=== PATIENT | female | born 1995 | race African-American/Black ===

== ENCOUNTER 2025-07-01 11:15 | Emergency (ER) | payer OTHER, SELFPAY ==
[2025-07-01 11:19] VITALS: BP 134/82
--- NOTE | 2025-07-01 13:13 | ED.GENMED ---
History of Present Illness
General
Chief Complaint: Skin Surface Trauma
Source: patient
Exam Limitations: none
Time Seen by Provider: 07/01/25 12:26
Nursing documentation reviewed up to this point in time: agreed with
History of Present Illness
History of Present Illness:
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 Then of long pants on believes she had a blunt object that
caused the skin injury. Has been able to walk does have some pain denies numbness weakness or additional symptoms.
Review of Systems
Review of Systems
Allergies reviewed?: Yes
All Other Systems: ROS reviewed and negative except as documented in HPI and ROS
Phy Exam
Physical Exam
Physical Exam:
GENERAL: Alert , in no apparent distress
EYE: pupils equal and reactive
NECK: Supple, no significant adenopathy.
ENT: o/p clr, mmm.
CARDIAC: Regular rate and rhythm .
LUNGS: Clear breath sounds bilaterally, no acute respiratory distress, no wheezes/rales/rhonchi
ABDOMEN: Soft, without focal tenderness, no r/g, no cvat
NEUROLOGICAL: Alert and oriented, no focal neuro deficits
SKIN: 1.5 cm laceration to the right anterior robb vertical in orientation subcutaneous in depth warm and dry, skin intact.
MUSCULOSKELETAL: No edema, well perfused.
PSYCH: Normal and appropriate interaction.
Course
Vital Signs
Initial and Last Documented VS:
Initial Vital Signs
Temp Pulse Resp BP Pulse Ox
98.0 F 93 16 134/82 98
07/01/25 11:19 07/01/25 11:19 07/01/25 11:19 07/01/25 11:19 07/01/25 11:19
Last Documented Vital Signs
Temp Pulse Resp BP Pulse Ox
98.0 F 93 16 134/82 98
07/01/25 11:19 07/01/25 11:19 07/01/25 11:19 07/01/25 11:19 07/01/25 13:13
Procedures
Laceration Closure
Right Anterior Distal Leg:
Status of Wound: clean
Size of Wound in cm: 1.5
Description of Wound Edges: sharp
Preparation: cleaned with saline
Anesthesia: 1% Lidocaine with epi
Revision/Debridement: routine- no revision
Wound exploration: explored to base- no FB and no tendon involvement
Type of Closure: single layer closure and interrupted sutures
Skin Closure Material: 4-0 nylon
Number of sutures: 3
MDM/Problems Addressed
MDM/Problems Addressed:
29-year-old female presenting to the emergency department today with concerns of a small laceration of the right anterior robb. This was cleaned thoroughly and closed with 3 stitches. Stable for outpatient management return precautions given.
Advise removal in 12 to 14 days. Low risk for infection up-to-date with tetanus shot.
*Pulse Oximetry
SaO2: 98
Oxygen Mode of Delivery: Room air
Patient hypoxic: no (98)
*Critical Care Note
Total Time (30-74mins, 75-104mins- exclusive of procedures): Not Applicable
ED Attending Note
-
Portions of this chart may have been created with voice recognition software.� Occasional wrong word or��sound alike� substitutions may have occurred due to the inherent limitations of voice recognition software.
Discharge Plan
Departure
Patient Disposition: Home (Routine Discharge)
Date of Disposition: 07/01/25
Time of Disposition: 13:13
Patient with high blood pressure during this ER visit?: No
Condition: Good
Covid-19: Not Applicable
Discharge Problem:
Laceration of skin of right lower leg
Instructions: Laceration Repair With Stitches (DC)
Referrals:
Veronica Mendiola MD [Family Provider, Family Practice]
Stand Alone Forms: Return to Work
Activity Restrictions/Additional Instructions:
You came to the emergency department today with concerns of a laceration to your right robb. This was cleaned and closed with 3 not dissolving stitches. Please have this removed by qualified nurse or provider in 12 to 14 days. Return for any
worsening, new or concerning symptoms.
Interventions
Interventions:
*Risk Screen - Suicide Last Done: 07/01/25 11:19
*Neglect/Abuse Screening Last Done: 07/01/25 11:19
Discharge Date and Time
Print Language: SAMI
== END 2025-07-01 13:54 | disposition home or self-care (01) ==
LOC: EMR 11:15
PROVIDERS: EMERGENCY PHYSICIAN Student in an Organized Health Care Education/Training Program; FAMILY PHYSICIAN Family Medicine
DX: S81.811A Laceration without foreign body, right lower leg, initial encounter (principal); W22.8XXA Striking against or struck by other objects, initial encounter; Y99.0 Civilian activity done for income or pay
CPT/HCPCS: 99282; 12001

== ENCOUNTER 2025-07-19 15:40 | Emergency (ER) | payer OTHER, SELFPAY ==
[2025-07-19 15:42] VITALS: BP 150/100
--- NOTE | 2025-07-19 16:00 | ED.SKININJ ---
HPI-Injury
General
Chief Complaint: Wound Check/Suture Removal
Source: patient
Exam Limitations: none
Time Seen by Provider: 07/19/25 15:44
Nursing documentation reviewed up to this point in time: agreed with
History of Present Illness-Injury
Initial Injury comments:
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 The wound has been healing well and she is here for suture removal
Past History
Past History
ED Past Medical History: None
Social History
Tobacco: Non-smoker
Personal: Single
Review of Systems
Review of Systems
Allergies reviewed?: Yes
All Other Systems: ROS reviewed and negative except as documented in HPI and ROS
Phy Exam
Physical Exam
Physical Exam:
PHYSICAL EXAMINATION:
General: no apparent distress, not acutely ill
Neuro: alert and oriented.
Psychiatric: well kept. interactive and cooperative
Musculoskeletal: Moves with ease
Skin: Warm, normal. 3 sutures removed from laceration right lower leg. Wound is well-healed.
Course
Vital Signs
Initial and Last Documented VS:
Initial Vital Signs
Temp Pulse Resp BP Pulse Ox
98.5 F 78 17 150/100 100
07/19/25 15:42 07/19/25 15:42 07/19/25 15:42 07/19/25 15:42 07/19/25 15:42
Last Documented Vital Signs
Temp Pulse Resp BP Pulse Ox
98.5 F 81 17 137/89 100
07/19/25 15:42 07/19/25 16:06 07/19/25 15:42 07/19/25 16:06 07/19/25 16:06
MDM/Problems Addressed
MDM/Problems Addressed:
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 The wound has been healing well and she is here for suture removal
*Pulse Oximetry
SaO2: 100
Oxygen Mode of Delivery: Room air
Patient hypoxic: not evaluated
*Critical Care Note
Total Time (30-74mins, 75-104mins- exclusive of procedures): Not Applicable
ED Attending Note
-
Portions of this chart may have been created with voice recognition software.� Occasional wrong word or��sound alike� substitutions may have occurred due to the inherent limitations of voice recognition software.
Discharge Plan
Departure
Patient Disposition: Home (Routine Discharge)
Date of Disposition: 07/19/25
Time of Disposition: 16:02
Patient with high blood pressure during this ER visit?: No
Condition: Good
Discharge Problem:
Visit for suture removal
Instructions: Wound Care (DC)
Referrals:
Veronica Mendiola MD [Family Provider, Family Practice]
Interventions
Interventions:
*Risk Screen - Suicide Last Done: 07/19/25 15:41
*General Assessment Last Done: 07/19/25 15:41
*Neglect/Abuse Screening Last Done: 07/19/25 15:41
*ED- Fall Risk Assessment Last Done: 07/19/25 16:06
*ED COVID-19 Vaccine History Last Done: 07/19/25 16:06
*Nursing Disposition Last Done: 07/19/25 16:08
ED-Skin Assessment Last Done: 07/19/25 16:06
Discharge Date and Time
Discharge Date/Time: 07/19/25 16:08
Print Language: [id number]
[2025-07-19 16:06] VITALS: BP 137/89
== END 2025-07-19 16:08 | disposition home or self-care (01) ==
LOC: EMR 15:40
PROVIDERS: EMERGENCY PHYSICIAN Emergency Medicine; FAMILY PHYSICIAN Family Medicine
DX: Z48.02 Encounter for removal of sutures (principal)
CPT/HCPCS: 99281